=== PATIENT | female | born 1955 | race Two or more races ===

== ENCOUNTER 2017-10-23 20:15 | Emergency (ER) | payer OTHER ==
[~2017-10-23] VITALS: Ht 167.6 cm; Wt 127.0 kg
[~2017-10-23 20:15] MED LIST: BACTRIM DS TABL1 TAB PO; COZAAR25 MG; GLIMEPIRIDE2 MG; KETO10TA2 PO; METFORMIN HCL500 MG; TAMS0.4C PO
[2017-10-24] MEDS ORDERED: RELAGESIC 5001 EACH PO (03:01)
[2017-10-24] MEDS ORDERED: LEVAQUIN750 MG PO (03:01)
== END 2017-10-24 03:15 | disposition home or self-care (01) ==
LOC: ER 20:15
DX: K57.90 Diverticulosis of intestine, part unspecified, without perforation or abscess without bleeding (principal); R10.31 Right lower quadrant pain

== ENCOUNTER 2024-08-08 07:01 | Emergency (ER) | payer OTHER ==
[~2024-08-08] VITALS: Ht 152.4 cm; Wt 103.4 kg
[~2024-08-08 07:01] MED LIST changes: +LEVAQUIN750 MG PO; +RELAGESIC 5001 EACH PO
[2024-08-08 07:16] VITALS: BP 116/74; O2SAT 98
[2024-08-08] MEDS ORDERED: LOSARTAN POTASS50 MG PO (07:25)
[2024-08-08] MEDS ORDERED: SYNJARDY XR 251 EACH PO (07:28)
[2024-08-08] MEDS ORDERED: TOPROL XL100 M1 PO (07:29)
[2024-08-08] MEDS ORDERED: LYRICA100 MG PO (07:29)
[2024-08-08] MEDS ORDERED: HYDROCHLOROTH12.5 M2 PO (07:30)
[2024-08-08] MEDS ORDERED: PRAVASTATIN SOD20 MG PO (07:30)
[2024-08-08] MEDS ORDERED: DILTIAZEM ER120 MG PO (07:30)
[2024-08-08] MEDS ORDERED: CHILDREN'S ASPI81 MG PO (07:31)
[2024-08-08] MEDS ORDERED: LEVO-T25 MCG PO (07:31)
[2024-08-08] MEDS ORDERED: LANTUS SOL100 UNIT/1 SQ (07:32)
[2024-08-08] MEDS ORDERED: EVISTA60 MG PO (07:32)
[2024-08-08] MEDS ORDERED: TRULICITY1.5 MG/0.5 SQ (07:34)
[2024-08-08] MEDS ORDERED: KETOROLAC TROMETHAMINE 30 MG VIAL IV ONE (08:30)
[2024-08-08] MEDS ORDERED: FAMOtidine 10 MG/ML (4ML VIAL) IV ONE (08:30)
[2024-08-08] MEDS ORDERED: FAMOTIDINE/PF 20 MG/2 ML VIAL ONE (08:41)
[2024-08-08] MEDS ORDERED: KETOROLAC TROMETHAMINE 30 MG VIAL ONE (08:41)
[2024-08-08 09:10] LABS: HEMATOCRIT 44.1 % (36.0-45.00); HEMOGLOBIN 14.9 g/dL (12.0-15.00); MEAN CELL VOLUME 86.1 fL (80.00-100.00); MEAN CORPUSCULAR HEMOGLOBIN 29.2 pg (27.00-32.0); MEAN CORPUSCULAR HGB CONC 33.9 g/dl (32.0-36.0); PLATELET COUNT 229 K/uL (150-450); RED BLOOD COUNT 5.12 M/uL (4.00-6.00); RED CELL DISTRIBUTION WIDTH 14.4 % (11.5-14.5)
[2024-08-08 09:26] LABS: INR 1.04; PARTIAL THROMBOPLASTIN TIME 26.3 SECONDS (22.0-34.0); PROTHROMBIN TIME 11.3 SECONDS (9.0-11.5)
[2024-08-08 09:30] LABS: ALBUMIN 3.2 gm/dL (3.4-5.0); BILIRUBIN TOTAL 0.54 mg/dL (0.3-1.2); CALCIUM 9.1 mg/dL (8.5-10.1); CREATININE SERUM 0.88 mg/dL (0.55-1.02); GFR 63.52; GLOBULINA 4.2 G/DL (2.4-3.5); TOTAL PROTEIN 7.4 gm/dL (6.4-8.2)
[2024-08-08 09:33] LABS: POTASSIUM 2.93 mEq/L (3.5-5.1)
[2024-08-08 09:43] LABS: PH,URINE 5.5 (5.0-8.0); URINE APPEARANCE Clear; URINE BILIRRUBIN Negative (NEGATIVE); URINE BLOOD Negative; URINE COLOR Yellow; URINE KETONE Negative (NEGATIVE); URINE LEUKOCYTE Negative; URINE NITRATE Negative; URINE PROTEIN Negative (NEGATIVE); URINE UROBILINOGEN 0.2 E.U./dl
[2024-08-08 09:44] LABS: URINE BACTERIA 92.9 uL (0.0-1933); URINE EPITHELIAL CELLS 8.2 uL (0.0-38.8); URINE WBC 30.5 uL (0.0-23.2)
[2024-08-08] MEDS ORDERED: POTASSIUM BICARBONATE/CIT AC 25 MEQ TABLET.EFF PO ONE (09:45)
[2024-08-08 10:08] LABS: URINE GLUCOSE >=1000 MG/DL (NEGATIVE)
[2024-08-08] MEDS ORDERED: CEFTRIAXONE SODIUM 1,000 MG VIAL ONE (10:59)
[2024-08-08] MEDS ORDERED: CEFTRIAXONE SODIUM 1,000 MG VIAL IV ONE (11:00)
[2024-08-08] MEDS ORDERED: LEVSIN/SL0.125 MG SL (11:13)
[2024-08-08] MEDS ORDERED: PEPCID AC20 MG PO (11:13)
[2024-08-08] MEDS ORDERED: METRONIDAZOLE500 MG PO (11:13)
[2024-08-08] MEDS ORDERED: PROBIOTIC1 EAC2 PO (11:13)
[2024-08-08] MEDS ORDERED: CIPRO500 MG PO (11:13)
== END 2024-08-08 11:17 | disposition home or self-care (01) ==
LOC: ER 07:02
PROVIDERS: General Practice
DX: K57.32 Diverticulitis of large intestine without perforation or abscess without bleeding (principal); E11.9 Type 2 diabetes mellitus without complications; Z79.84 Long term (current) use of oral hypoglycemic drugs; I10 Essential (primary) hypertension; E03.9 Hypothyroidism, unspecified; Z91.018 Allergy to other foods; Z91.010 Allergy to peanuts
CPT/HCPCS: 36415; 74177; 93005; 96365; 96366; 99284; J0696; J1885; J3490; Q9965